=== PATIENT | female | born 1985 | race African-American/Black ===

== ENCOUNTER 2024-06-16 12:12 | Emergency (ER) | payer SELFPAY ==
[~2024-06-16] VITALS: Ht 152.4 cm; Wt 81.6 kg
[2024-06-16 12:24] VITALS: BP 167/106; PULSE 94; RESP 16; TEMP 98.6; O2SAT 96
[2024-06-16 12:43] LABS: BASOPHILS % 0.8 % (0.0-2.0); EOSINOPHILS % 2.5 % (0.0-5.0); HEMOGLOBIN. 14.6 g/dL (12.0-16.0); LYMPHOCYTES % 26.4 % (20.0-50.0); MEAN CORPUSCULAR HEMOGLOBIN 32.4 pg (28.0-32.0); MEAN CORPUSCULAR VOLUME 95.4 fL (81.0-99.0); MEAN PLATELET VOLUME 10.6 fl (7.4-10.4); MONOCYTES % 5.2 % (2.0-8.0); NEUTROPHILS % 65.1 % (40.0-76.0); PLATELET 204 x1000/uL (130-400); RED CELL DISTRIBUTION WIDTH 12.6 % (11.6-14.6); WHITE BLOOD COUNT 7.4 x1000/uL (4.5-11.0)
[2024-06-16 12:49] LABS: CHLORIDE 108 mEq/L (98-107); POTASSIUM 3.6 mEq/L (3.5-5.1); SODIUM 137 mEq/L (136-145)
[2024-06-16 12:50] LABS: CARBON DIOXIDE 22 mEq/L (21-32)
[2024-06-16 12:51] LABS: CALCIUM 9.4 mg/dL (8.7-10.4)
[2024-06-16 12:55] LABS: CREATININE 0.8 mg/dL (0.6-1.0); GLUCOSE 140 mg/dL (70-105); UREA NITROGEN BLOOD 9 mg/dL (9-23)
[2024-06-16 12:56] LABS: HCG SCREEN NEGATIVE
[2024-06-16 13:24] LABS: TROPONIN I HIGH SENSITIVITY < 4 ng/L (3.0-34)
== END 2024-06-16 14:18 | disposition home or self-care (01) ==
LOC: ER 12:24
DX: R07.9 Chest pain, unspecified (principal); F41.9 Anxiety disorder, unspecified; Z90.49 Acquired absence of other specified parts of digestive tract
CPT/HCPCS: 36415; 71045; 80048; 84484; 84703; 85025; 85379; 93005; 99285

== ENCOUNTER 2024-09-11 23:02 | Inpatient (IN) | payer SELFPAY ==
[~2024-09-11] VITALS: Ht 152.4 cm; Wt 95.3 kg
[2024-09-12] LABS: CHLORIDE 107 mEq/L (98-107); POTASSIUM 3.7 mEq/L (3.5-5.1); SODIUM 137 mEq/L (136-145)
[2024-09-12 00:01] LABS: CARBON DIOXIDE 21 mEq/L (21-32); DIFFERENTIAL COMMENT 1; HEMATOCRIT. 43.9 % (36.0-48.0); MEAN CORPUSCULAR HEMOGLOBIN 32.5 pg (28.0-32.0); MEAN CORPUSCULAR HGB CONC 34.2 g/dL (31.0-37.0); MEAN CORPUSCULAR VOLUME 95.1 fL (81.0-99.0); MEAN PLATELET VOLUME 10.4 fl (7.4-10.4); PLATELET 167 x1000/uL (130-400); RED BLOOD CELL COUNT 4.62 mill/uL (4.2-5.4); RED CELL DISTRIBUTION WIDTH 13.1 % (11.6-14.6); WHITE BLOOD COUNT 9.8 x1000/uL (4.5-11.0)
[2024-09-12 00:02] LABS: CALCIUM 9.3 mg/dL (8.7-10.4)
[2024-09-12 00:06] LABS: CREATININE 1.1 mg/dL (0.6-1.0); GLUCOSE 122 mg/dL (70-105)
[2024-09-12 00:07] LABS: UREA NITROGEN BLOOD 9 mg/dL (9-23)
[2024-09-12] MEDS: SODIUM CHLORIDE 0.9% (SEPSIS BOLUS) IV ONE (00:23)
[2024-09-12] MEDS: CEFTRIAXONE 1GM/50ML 50 ML IV ONE (00:23)
[2024-09-12] MEDS: KETOROLAC 15MG/ML VIAL IV ONE (00:23)
[2024-09-12 00:42] LABS: CLARITY URINE CLEAR (CLEAR); COLOR URINE YELLOW (YELLOW); GLUCOSE URINE NEGATIVE (NEGATIVE); KETONES URINE TRACE (NEGATIVE); LEUKOCYTE ESTERASE URINE TRACE (NEGATIVE); NITRITE URINE NEGATIVE (NEGATIVE); OCCULT BLOOD URINE NEGATIVE (NEGATIVE); PH URINE 8.5 (4.5-8.0); PROTEIN URINE NEGATIVE (NEGATIVE); SPECIFIC GRAVITY URINE 1.015 (1.005-1.030)
[2024-09-12 03:00] VITALS: BP 121/76; PULSE 100; RESP 18; TEMP 38.0586; O2SAT 96
[2024-09-12] MEDS ORDERED: DOCUSATE SODIUM 100MG CAPSULE PO PRN (03:00)
[2024-09-12] MEDS ORDERED: GUAIFENESIN 200MG/10ML SUGAR FREE UDC PO PRN (03:00)
[2024-09-12] MEDS ORDERED: ACETAMINOPHEN 325MG TABLET PO PRN (03:00)
[2024-09-12] MEDS: SODIUM CHLORIDE 0.9% 1,000 ML IV SCH (03:00)
[2024-09-12] MEDS ORDERED: CLONIDINE 0.1MG TABLET PO PRN (03:00)
[2024-09-12] MEDS ORDERED: ONDANSETRON HCL 4MG/2ML INJ IV PRN (03:00)
[2024-09-12] MEDS ORDERED: IPRATROPIUM/ALBUTEROL 0.5-3(2.5)MG/3ML NEB HHN PRN (03:00)
[2024-09-12 03:36] LABS: SQUAMOUS EPITHELIAL CELL URINE FEW /lpf (RARE/1+)
[2024-09-12 03:37] LABS: RBC URINE 0-2 /hpf (0-2); WBC URINE 0-2 /hpf (0-2)
[2024-09-12 03:38] LABS: BACTERIA URINE NONE SEEN
[2024-09-12 06:21] LABS: PLATELET ESTIMATE NORMAL
[2024-09-12 06:23] LABS: TROPONIN I HIGH SENSITIVITY < 4 ng/L (3.0-34)
[2024-09-12 06:25] LABS: CALCIUM 8.4 mg/dL (8.7-10.4); CARBON DIOXIDE 21 mEq/L (21-32); CHLORIDE 110 mEq/L (98-107); POTASSIUM 3.7 mEq/L (3.5-5.1); SODIUM 140 mEq/L (136-145)
[2024-09-12 06:31] LABS: CREATININE 0.9 mg/dL (0.6-1.0); GLUCOSE 110 mg/dL (70-105); UREA NITROGEN BLOOD 8 mg/dL (9-23)
[2024-09-12 06:55] LABS: BASOPHILS % 0.4 % (0.0-2.0); EOSINOPHILS % 0.1 % (0.0-5.0); HEMATOCRIT. 39.1 % (36.0-48.0); HEMOGLOBIN. 12.9 g/dL (12.0-16.0); LYMPHOCYTES % 11.7 % (20.0-50.0); MEAN CORPUSCULAR HEMOGLOBIN 31.8 pg (28.0-32.0); MEAN CORPUSCULAR HGB CONC 33.1 g/dL (31.0-37.0); MEAN CORPUSCULAR VOLUME 96.1 fL (81.0-99.0); MEAN PLATELET VOLUME 10.9 fl (7.4-10.4); MONOCYTES % 5.8 % (2.0-8.0); PLATELET 144 x1000/uL (130-400); RED BLOOD CELL COUNT 4.07 mill/uL (4.2-5.4); RED CELL DISTRIBUTION WIDTH 13.2 % (11.6-14.6); WHITE BLOOD COUNT 7.7 x1000/uL (4.5-11.0)
[2024-09-12] MEDS: IPRATROPIUM/ALBUTEROL 0.5-3(2.5)MG/3ML NEB HHN SCH (08:36)
[2024-09-12 08:37] VITALS: PULSE 95; RESP 16; O2SAT 98
[2024-09-12] MEDS: ENOXAPARIN 30MG/0.3ML SYR SUBCUT SCH (09:38)
[2024-09-12] MEDS: AZITHROMYCIN 500MG/250ML 250 ML IV SCH (09:39)
[2024-09-12] MEDS: ACETAMINOPHEN 325MG TABLET PO PRN (11:00)
[2024-09-12 12:11] VITALS: BP 136/86; PULSE 104; RESP 20; TEMP 36.89184; O2SAT 100
[2024-09-12 13:50] VITALS: BP 117/71; PULSE 90; RESP 18; TEMP 36.5292
[2024-09-12 16:00] VITALS: BP 130/69; PULSE 87; RESP 20; TEMP 36.61404; O2SAT 98
[2024-09-12 17:37] LABS: TROPONIN I HIGH SENSITIVITY < 4 ng/L (3.0-34)
[2024-09-12 22:06] LABS: TROPONIN I HIGH SENSITIVITY < 4 ng/L (3.0-34)
[2024-09-13] VITALS: BP 115/67; PULSE 85; RESP 20; TEMP 36.33624; O2SAT 98
[2024-09-13] MEDS: CEFTRIAXONE 1GM/50ML 50 ML IV SCH (00:41)
[2024-09-13 01:54] LABS: TROPONIN I HIGH SENSITIVITY < 4 ng/L (3.0-34)
[2024-09-13 04:00] VITALS: BP 110/70; PULSE 68; RESP 20; TEMP 36.33624; O2SAT 96
[2024-09-13 07:19] LABS: CHLORIDE 109 mEq/L (98-107); POTASSIUM 3.8 mEq/L (3.5-5.1); SODIUM 141 mEq/L (136-145)
[2024-09-13 07:20] LABS: CALCIUM 8.7 mg/dL (8.7-10.4); CARBON DIOXIDE 24 mEq/L (21-32)
[2024-09-13 07:25] LABS: CREATININE 0.8 mg/dL (0.6-1.0); GLUCOSE 113 mg/dL (70-105); TRIGLYCERIDE 267 mg/dL (0-150); UREA NITROGEN BLOOD 8 mg/dL (9-23)
[2024-09-13 07:26] LABS: LDL CHOLESTEROL 79 mg/dL (5-100)
[2024-09-13 07:27] LABS: CHOLESTEROL 149 mg/dL (<200); HDL CHOLESTEROL 29 mg/dL (>65)
[2024-09-13 07:29] LABS: T4 FREE 1.15 ng/dL (0.89-1.76); THYROID STIMULATING HORMONE 2.42 uIU/mL (0.55-4.78)
[2024-09-13 07:34] LABS: HEMOGLOBIN 12.6 g/dL (12.0-16.0); MEAN CORPUSCULAR HGB CONC 33.1 g/dL (31.0-37.0); MEAN CORPUSCULAR VOLUME 96.4 fL (81.0-99.0); PLATELET 145 x1000/uL (130-400); RED BLOOD CELL COUNT 3.94 mill/uL (4.2-5.4); WHITE BLOOD COUNT 4.4 x1000/uL (4.5-11.0)
[2024-09-13 07:47] LABS: TROPONIN I HIGH SENSITIVITY < 4 ng/L (3.0-34)
[2024-09-13 08:00] VITALS: BP 113/68; PULSE 65; RESP 18; TEMP 36.55848; O2SAT 99
[2024-09-13] MEDS: AZITHROMYCIN 500 MG TABLET PO SCH (08:25)
[2024-09-13] MEDS ORDERED: AZIT500T8 PO (11:09)
[2024-09-13 12:00] VITALS: BP 119/74; PULSE 73; RESP 20; TEMP 36.6696; TEMP 36.66960; O2SAT 97
[2024-09-13 12:39] VITALS: BP 113/70; PULSE 67; TEMP 97.8; O2SAT 99
== END 2024-09-13 13:55 | disposition home or self-care (01) | DRG 720 ==
LOC: ER 23:02 → EDBEDREQ 23:51 → 5WST 09-12 00:23 → EDBEDREQTM 09-12 00:28 → EDBEDREQ 09-12 00:28 → EDBEDREQDT 09-12 00:28 → 8WST 09-12 13:53
PROVIDERS: ADMIT Preventive Medicine Clinical Informatics; ATTEND Preventive Medicine Clinical Informatics
DX: A41.9 Sepsis, unspecified organism (principal); J06.9 Acute upper respiratory infection, unspecified; M94.0 Chondrocostal junction syndrome [Tietze]; R07.89 Other chest pain; Z90.49 Acquired absence of other specified parts of digestive tract
CPT/HCPCS: 36415; 71045; 80048; 80061; 81003; 83605; 83880; 84145; 84439; 84443; 84484; 85025; 85027; 87804; 93005; 94640; 99291; J0456; J0696; J1650; J1885; J2405; J7030